=== PATIENT | male | born 1960 | race Caucasian/White ===

== ENCOUNTER → 2023-05-06 15:13 | Outpatient (CLI) | payer BC, SELFPAY ==
--- NOTE | ~2023-05-06 | CT_ITS ---
EXAMINATION: CT lung screening DATE: 05/06/2023 15:28 INDICATION: Z87.891 - Personal history of nicotine dependence TECHNIQUE: Computed tomography (CT) of the chest was performed without intravenous contrast. Addition al 3D reconstructions utilizing coronal maximum intensity projection (MIP) were performed. Automated exposure control and iterative reconstruction technique were employed. The dose-length product was 70 .15 mGy-cm. COMPARISON: None FINDINGS: Severe emphysema. Biapical pleural-parenchymal scarring, left greater than right. Linear bands of dis coid atelectasis/scarring and calcified pulmonary nodules in the bilateral upper lobes consistent wit h chronic granulomatous disease. 4 mm noncalcified nodule at the left apex and 2 mm subpleural nodule in the anterobasilar segment of the right lower lobe. A few small thin triangular intrafissural lymp h nodes along the bilateral major fissures. No pneumonia, pulmonary edema, pleural effusion or pneumo thorax. Heart size normal. Atherosclerotic coronary artery calcification is. Thoracic aorta is normal in caliber. No pathologically enlarged thoracic lymphadenopathy. Visualized upper abdomen is unremar kable. Mild upper thoracic dextrocurvature with chronic mild anterior wedging of a few mid thoracic v ertebral bodies. Moderate thoracic spondylosis. IMPRESSION: 1. Lung-RADS category 2: Benign appearance or behavior. Continue annual screening with noncontrast lo w-dose chest CT in 12 months. Reviewed, dictated and finalized at location A. T PARKING ATTENDANT IMPRESSION: 1. Lung-RADS category 2: Benign appearance or behavior. Continue annual screeni ng with noncontrast low-dose chest CT in 12 months.
== END ==
PROVIDERS: PCP Physician Assistant; Visit Provider Physician Assistant
DX: Z12.2 Encounter for screening for malignant neoplasm of respiratory organs (principal); Z87.891 Personal history of nicotine dependence
CPT/HCPCS: 71271

== ENCOUNTER 2023-06-07 01:57 | Day surgery (SDC) | payer BC, SELFPAY ==
[2023-06-01 15:12] VITALS: BMI 24.0
--- NOTE | 2023-06-03 09:20 | SUR.PREOP ---
Patient called regarding upcoming procedure. Voicemail left regarding appointment times.
[2023-06-07 13:05] VITALS: BP 142/94; PULSE 62; RESP 16; TEMP 36.5; O2SAT 98
[2023-06-07] MEDS: LACTATED RINGERS 1,000 ML 150 ML IV CONT (13:13)
--- NOTE | 2023-06-07 13:21 | PM.HPGS ---
History of Present Illness History of Present Illness Consent: Risks, benefits, and alternatives have been discussed and questions answered. Patient agrees to proceed with procedure. Chief complaint: neoplasm screening Narrative: Keron Torres is a 62 year old male here for first screening colonoscopy Review of Systems Review of Systems: All systems reviewed & are unremarkable except as noted in HPI and below PMFSH Past Medical History Medical History Colon cancer screening COPD (chronic obstructive pulmonary disease) Dyslipidemia Elevated PSA Thrombocytosis Tobacco use Family History Family History Mother Hypertension Father Family history of coronary artery disease Other Family history of arthritis Social History Social History Smoking packs per day: 1 Smoking cigarettes per day: 20.0 Years smoked: 30 Smoking pack-years: 30.00 Smoking status: Former smoker Tobacco type: cigarettes and e-cigarettes/vaping Additional smoking assessment comments: CURRENTLY VAPES SINCE 04/11/2023 Alcohol intake: current Substance use: current Substance use type: marijuana Other substance usage details: DAILY-SMOKES- RECREATION Living arrangements: with family Spiritual care concerns: No Meds Home Medications and Allergies Home Medications Medication Instructions Recorded Confirmed Type Chelation Plus Reservatrol 3 tab-cap PO DAILY 06/01/23 06/07/23 History [place] Xl 2 tab-cap PO DAILY 06/01/23 06/07/23 History Allergies Allergy/AdvReac Type Severity Reaction Status Date / Time No Known Allergies Allergy Verified 06/07/23 13:02 Vital Signs Vital Signs - 24 hr 06/07/23 13:05 Temperature 97.7 F Pulse Rate 62 Respiratory Rate 16 Blood Pressure 142/94 H Pulse Oximetry 98 Oxygen Delivery Room Air Exam Const: General: comfortable and no acute distress HENMT: Face/Nose/Sinus: Normal nares present Eyes: General: appearance normal, both eyes and all related structures Neck: Neck: no JVD Resp: Auscultation: clear to auscultation bilaterally Cardio: Rate: regular rate Rhythm: regular rhythm GI: Inspection: non-distended GI Palp: Yes Soft to palpation Skin: General skin exam: normal color Neuro: General: gait normal Speech: normal speech Extrem: General: normal to inspection Psych: Mental Status: mental status grossly normal Assessment and Plan Assessment and plan (1) Colon cancer screening: Code(s): Z12.11 - Encounter for screening for malignant neoplasm of colon Status: Acute Assessment and Plan: colonoscopy
--- NOTE | 2023-06-07 13:24 | WPDANESEPPF ---
Anes - Initial Pre Proc Eval Procedure: Operation Date: 06/07/23 13:30 Proposed Procedures p Screening Colonoscopy - Sunny Stone MD Date/Time: 06/07/23 13:24 Surgeon: Sunny Sotne MD Pre Op Diagnosis: neoplasm screening Patient Data Age: 62 Gender: M Height: 1.63 m Weight: 61.3 kg Last Vital Signs Temp 97.7 F 06/07/23 13:05 Pulse 62 06/07/23 13:05 Resp 16 06/07/23 13:05 BP 142/94 H 06/07/23 13:05 Pulse Ox 98 06/07/23 13:05 O2 Del Method Room Air 06/07/23 13:05 Allergies Allergy/AdvReac Type Severity Reaction Status Date / Time No Known Allergies Allergy Verified 06/07/23 13:02 Home Medications Medication Instructions Recorded Confirmed Type Chelation Plus Reservatrol 3 tab-cap PO DAILY 06/01/23 06/07/23 History [place] Xl 2 tab-cap PO DAILY 06/01/23 06/07/23 History Patient hx anesthesia problems: none Family hx anesthesia problems: none Results Review: All pre-operative results and documents have been reviewed as part of the pre-operative evaluation. [facility] Past Medical History Medical History Colon cancer screening COPD (chronic obstructive pulmonary disease) Dyslipidemia Elevated PSA Thrombocytosis Tobacco use Family History Family History Mother Hypertension Father Family history of coronary artery disease Other Family history of arthritis Social History Social History Smoking packs per day: 1 Smoking cigarettes per day: 20.0 Years smoked: 30 Smoking pack-years: 30.00 Smoking status: Former smoker Tobacco type: cigarettes and e-cigarettes/vaping Additional smoking assessment comments: CURRENTLY VAPES SINCE 04/11/2023 Alcohol intake: current Substance use: current Substance use type: marijuana Other substance usage details: DAILY-SMOKES- RECREATION Living arrangements: with family Spiritual care concerns: No Anes - Eval Final PreProcedure Day of Procedure 06/07/23 13:24 Patient weight: normal Heart: regular rate and rhythm Lungs: clear to auscultation Airway: Mallampati scale class II Neurological: alert and oriented Last oral intake: >/= 8 hours ASA classification: III Emergent: no Anesthetic plan: proceed Anesthesia type and monitoring: general GIVS and standard monitoring Results Review: All pre-operative results and documents have been reviewed as part of the pre-operative evaluation. Informed Consent: The patient's anesthetic plan and its attendant risks and benefits were discussed with the patient/family/POA. Questions were solicited and answers provided to the satisfaction of the patient/family/POA.
[2023-06-07 13:36] VITALS: BP 116/72; PULSE 64; RESP 21; O2SAT 99
[2023-06-07 13:46] VITALS: BP 126/68; PULSE 65; RESP 25; O2SAT 100
[2023-06-07 13:56] VITALS: BP 134/82; PULSE 55; RESP 18; O2SAT 100
== END 2023-06-07 14:16 | disposition home or self-care (01) ==
PROVIDERS: PCP Physician Assistant; Visit Provider Internal Medicine Gastroenterology
PROC: 0DJD8ZZ Inspection of Lower Intestinal Tract, Via Natural or Artificial Opening Endoscopic (ICD-10-PCS; CPT 45378; principal; 2023-06-07 13:30)
DX: Z12.11 Encounter for screening for malignant neoplasm of colon (principal); K63.5 Polyp of colon; K64.8 Other hemorrhoids; E78.5 Hyperlipidemia, unspecified; J44.9 Chronic obstructive pulmonary disease, unspecified; D75.839 Thrombocytosis, unspecified; F12.90 Cannabis use, unspecified, uncomplicated; Z87.891 Personal history of nicotine dependence; Z82.49 Family history of ischemic heart disease and other diseases of the circulatory system
CPT/HCPCS: 45380; 88305; J2704; J7120

== ENCOUNTER 2024-05-15 11:06 | Outpatient (CLI) | payer OTHER, SELFPAY | END 2024-05-15 11:07 | disposition home or self-care (01) | LOC: MICIMG 11:10 | PROVIDERS: PCP Family Medicine; Visit Provider Physician Assistant | DX: Z12.2 Encounter for screening for malignant neoplasm of respiratory organs (principal); Z87.891 Personal history of nicotine dependence; Z13.6 Encounter for screening for cardiovascular disorders; J43.9 Emphysema, unspecified | CPT/HCPCS: 71271; 76775 ==

== ENCOUNTER 2025-01-24 12:36 | Outpatient (CLI) | payer OTHER, SELFPAY ==
--- NOTE | ~2025-01-24 | US_ITS ---
EXAM/PROCEDURE: US soft tissue head and neck HISTORY: R59.0 - Localized enlarged lymph nodes COMPARISON: None available. TECHNIQUE: Directed examination performed by technologist directed toward sonographic evaluation of the left supraclavicular region. FINDINGS: Numerous well-defined, hypoechoic masses some with posterior through enhancement, most having internal echoes are identified throughout the left supraclavicular region. The largest measures 1.7 x 0.8 x 1.2 cm. IMPRESSION: Numerous hypoechoic masses as above with reactive lymphadenopathy possibly having a similar appearance. Correlation with sectional imaging of this area such as contrast-enhanced soft tissue neck/chest CT or alternatively MRI recommended for optimal evaluation. Reviewed, dictated and finalized at location A. IO OPERATIONS ENGINEER IN CHARGE IMPRESSION: Numerous hypoechoic masses as above with reactive lymphadenopathy possibly havi ng a similar appearance. Correlation with sectional imaging of this area such a s contrast-enhanced soft tissue neck/chest CT or alternatively MRI recommended for optimal evaluation.
--- OUTSIDE RECORDS SUMMARY | 2025-01-24 13:10 | XMS_ITS | Clinical Summary ---
Author Organization [facility] Health Address [address] [place] [address] Care Team Providers Care Mine Safety Manager Name Role Phone Unavailable Primary Care Provider Unavailabl e Medications amoxicillin-pot clavulanate (AUGMENTIN) 875-125 mg tablet Take 1 tablet by mouth in the morning and 1 tablet in the evening. 14 tablet 08/22/2023 Active oxyCODONE-acetam inophen (Percocet) 5-325 mg tablet Take 1 tablet by mouth every 4 (four) hours if needed for severe pain. 16 tablet 08/22/2023 Active chlorhexidine (PERIDEX) 0.12 % solution Swish 15 mL for one minute twice daily. Spit out. 480 mL 08/22/2023 Active Social History Tobacco Use Types Packs/Day Years Used Date Smoking Tobacco: Never Assessed Sex and Gender Information Value Date Recorded Sex Assigned at Not on file Legal Sex Male 7:13 AM PDT Gender Identity Not on file Sexual Orientation Not on file Plan of Treatment Health Maintenance Due Date Last Done Comments Dental Oral Exam 1958 Dental Prophylaxis 1958 Dental X-Ray: Bitewings 1958 Dental X-Ray: Full Mouth 1958 Dental X-Ray: Panoramic 08/05/2026 08/05/2023 [facility] COMMERCIAL
--- OUTSIDE RECORDS SUMMARY | 2025-01-24 13:10 | XMS_ITS | Clinical Summary ---
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 Gender Identity Not on file Sexual Orientation Not on file Plan of Treatment Health Maintenance Due Date Last Done Comments Colon Cancer Screening-Colonoscopy 1958 Depression Screening 1958 Fall Risk Assessment 1958 Hepatitis C Screening 1958 Prostate Cancer Screening-PSA 1958 DTaP/Tdap/Td Vaccine (1 - Tdap) 1969 Hepatitis B Screening 1976 Pneumococcal vaccine 65+ (1 of 1 - PCV) 2008 Abdominal Aortic Aneurysm (A AA) Screen 10/09/2023 Well Visit 65+ 10/09/2023 Covid-19 Vaccine (2024-2 6 season) 2024 12/14/2022, 12/14/2020, 06/05/2020, Additional history exists Influenza Vaccine (#1) 2024 , 12/24/2021, 12/11/2020 Zoster Vaccine Completed 02/12/2023, 12/14/2022 Insurance ANTHEM ACCESS ANTHEM ACCESS Care Teams Wild Life Photographer Relationship Specialty Start Date End Date Jasbir Pepe MD [address] [facility] [address] [place] [address] PCP - General Family Medicine 06/16/23
--- OUTSIDE RECORDS SUMMARY | 2025-01-24 13:10 | XMS_ITS | Encounter Summary ---
Author Organization [employer] Address 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
--- OUTSIDE RECORDS SUMMARY | 2025-01-24 13:10 | XMS_ITS | Encounter Summary ---
Author Organization [email or web address] Address 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
--- OUTSIDE RECORDS SUMMARY | 2025-01-24 13:10 | XMS_ITS | Encounter Summary ---
Author Organization [employer] Address 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
--- OUTSIDE RECORDS SUMMARY | 2025-01-24 13:10 | XMS_ITS | Clinical Summary ---
Author Organization [facility] Address [address] [facility] [place] [address] Phone Care Team Providers Care Napper Grinder Name Role Phone Jasbir Pepe MD Primary Care Provider [phone] Allergies No known active allergies Medications buPROPion HCl (WELLBUTRIN XL) 150 mg Extended Release 24 hour tablet TAKE 1 TABLET BY MOUTH EVERY DAY 1 03/16/2018 Active Active Problems Problem Noted Date Diagnosed Date Leukocytosis (leucocytosis) 04/10/2018 Thrombocytosis 04/10/2018 Family History Medical History Relation Name Comments Brain Cancer Brother 1 Breast Cancer Mother Cancer Mother Relation Name Status Comments Brother 1 Alive Brother 2 Alive Father Mother Sister 1 Alive Sister 2 Alive Sister 3 Alive Social History Tobacco Use Types Packs/Day Years Used Date Smoking Tobacco: Former Cigarettes 1 30 0 03/20/1988 - 03/20/2018 Smokeless Tobacco: Never Alcohol Use Standard Drinks/Week Comments Yes 0 (1 standard drink = 0.6 oz pur e alcohol) Sex and Gender Information Value Date Recorded Sex Assigned at Not on file 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 Gender Identity Not on file Sexual Orientation Not on file Last Filed Vital Signs Vital Sign Reading Time Taken Comments Blood Pressure 145/86 07/31/2018 4:00 PM CDT Pulse 56 07/31/2018 4:00 PM CDT Temperature 36.8 C (98.2 F) 07/31/2018 4:00 PM CDT Respiratory Rate - - Oxygen Saturation 97% 07/31/2018 4:00 PM CDT Inhaled Oxygen Concentration - - Weight 68.4 kg (150 lb 14.4 oz) 07/31/2018 4:00 PM CDT Height 161.3 cm (5' 3.5) 07/31/2018 4:00 PM CDT Body Mass Index 26.31 07/31/2018 4:00 PM CDT Plan of Treatment Health Maintenance Due Date Last Done Comments DTAP/TDAP/TD VACCINES (1 - Tdap) 1977 COLORECTAL SCREENING 10/09/2003 Colorectal Cancer Screening 10/09/2003 FIT-DNA Q 3 years 10/09/2003 FIT/FOBT Q 1 year 10/09/2003 Flex Sig/CT Colonography Q 5 years 10/09/2003 PNEUMOCOCCAL VACCINE 50+ YEARS (1 of 1 - PCV) 10/09/19 09 ZOSTER VACCINE (1 of 2) 2008 INFLUENZA VACCINE (#1) 2024 RSV VACCINE (60+ or ) (1 - 1-dose 75+ series) 2033 Insurance [facility] [employer] PPO Care Teams Napper Grinder Relationship Specialty Start Date End Date Jasbir Pepe MD [address] [facility] [address] [place] [phone] PCP - General Family Practice 07/31/18
--- OUTSIDE RECORDS SUMMARY | 2025-01-24 13:10 | XMS_ITS | Encounter Summary ---
Author Organization [facility] Health Address [address] [place] [address] Care Team Providers Care Pleater Hand Name Role Phone Unavailable Primary Care Provider Unavailabl e Prior Encounters Date Type Department Care Team Description 09/20/2023 9:00 AM CDT Office Visit [facility] [address] [place] [phone] Manjit Mcneil DDS 08/22/2023 12:30 PM CDT Office Visit [facility] [address] [place] [phone] Manjit Mcenil DDS 08/05/2023 8:00 AM CDT Office Visit [facility] [address] [place] [phone] Manjit Mcneil DDS Plan of Treatment Not on file Procedures Procedure Name Priority Date/Time Associated Diagnosis Comments RE-EVALUATION POST-OPERATIVE OFFICE VISIT Routine 09/20/2023 9:00 AM CDT 31 EXTRACTION, ERUPTED TOOTH REQUIRING REMOVAL OF BONE AND/OR SECTIONING OF TOOTH Routine 08/22/2023 12:30 PM CDT UR PRIMARY CLOSURE OF A SINUS PERFORATION Routine 08/22/2023 12:30 PM CDT 4 UR OSSEOUS SURGERY FOUR OR MORE CONTIGUOUS TEETH Routine 08/22/2023 12:30 PM CDT 31 PLACEMENT OF INTRA-SOCKET BIOLOGICAL DRESSING TO AID IN HEMOSTASIS OR CLOT STABILIZATION, PER SITE Routine 08/22/2023 12:30 PM CDT 4 PLACEMENT OF INTRA-SOCKET BIOLOGICAL DRESSING TO AID IN HEMOSTASIS OR CLOT STABILIZATION, PER SITE Routine 08/22/2023 12:30 PM CDT 27 LR OSSEOUS SURGERY FOUR OR MORE CONTIGUOUS TEETH Routine 08/22/2023 12:30 PM CDT 4 EXTRACTION, ERUPTED TOOTH REQUIRING REMOVAL OF BONE AND/OR SECTIONING OF TOOTH Routine 08/22/2023 12:30 PM CDT 14 UL OSSEOUS SURGERY FOUR OR MORE CONTIGUOUS TEETH Routine 08/22/2023 12:30 PM CDT 21 LL OSSEOUS SURGERY FOUR OR MORE CONTIGUOUS TEETH Routine 08/22/2023 12:30 PM CDT OCCLUSAL GUARD HARD APPLIANCE, FULL ARCH Routine 08/05/2023 8:00 AM CDT PERIO CONSULT Routine 08/05/2023 8:00 AM CDT Visit Diagnoses Not on file Insurance [facility]
--- OUTSIDE RECORDS SUMMARY | 2025-01-24 13:10 | XMS_ITS | Encounter Summary ---
Author Organization [employer] Address 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
== END 2025-01-24 12:37 | disposition home or self-care (01) ==
PROVIDERS: PCP Family Medicine
DX: R59.0 Localized enlarged lymph nodes (principal)
CPT/HCPCS: 76536

== ENCOUNTER 2025-02-12 12:29 | Outpatient (CLI) | payer OTHER, SELFPAY ==
--- NOTE | ~2025-02-12 | CT_ITS ---
EXAMINATION: CT chest abdomen pelvis w con DATE: 02/12/2025 13:34 INDICATION: Secondary and unspecified malignant neoplasm of lung TECHNIQUE: Computed tomography (CT) of the chest, abdomen, and pelvis was performed with 100 mL Omnipaque-350 intravenous contrast. Automated exposure control and iterative reconstruction technique were employed. The dose-length product was 320.82 mGy-cm. COMPARISON: 05/15/2024 FINDINGS: CHEST CT: Severe emphysema. No significant change in linear bands of discoid atelectasis/scarring in the bilateral upper and lower lobes. Several calcified nodule right upper lobe along with calcified right hilar and mediastinal lymph nodes consistent with old granulomatous disease. Consistent with old granuloma tous disease. No pneumonia, pulmonary edema or pleural effusion. Heart size is normal. Atherosclerotic coronary artery calcifications. Thoracic aorta is normal in caliber with no dissection. There are multiple enlarged and heterogeneously enhancing mediastinal and right hilar lymph nodes. For reference this includes a 2.4 x 1.6 cm AP window lymph node, a 3.3 x 2.2 cm precarinal lymph node and a 2.3 x 2.3 cm right hilar lymph node. There is a new moderate-sized pericardial effusion. There is a 3.2 x 3.1 cm lytic lesion at the manubrium concerning for malignancy. There appears to be mild expansion and cortical thickening of the posterior aspect of the left 10th rib consistent with Paget's disease. ABDOMEN/PELVIS CT: Liver, gallbladder, pancreas and bilateral adrenal glands are normal. There are few small hypodense splenic lesions the largest measuring 9 mm. Bilateral renal cysts the largest on the left measuring 1.9 cm. Bowels including the appendix are normal. Prostatomegaly measuring 5.4 x 4.7 cm. Bladder is normal. No free intraperitoneal gas or fluid. No pathologically enlarged abdominal or pelvic lymphadenopathy. Several scattered small sclerotic likely bone islands in the pelvis and bilateral femoral heads. Mild to moderate bilateral hip and sacroiliac osteoarthritis. No other suspicious lytic or blastic bone lesions. IMPRESSION: 1. Enlarged mediastinal and right hilar lymph nodes and a 3.3 cm lytic lesion at the manubrium concerning for metastatic disease. Given the previous noted concerning left supraclavicular lymphadenopathy identified on prior ultrasound would consider further evaluation with core needle biopsy of the left supraclavicular lymph nodes. 2. Moderate-sized pericardial effusion, new since the prior study. 3. There are few subcentimeter hypodense splenic lesions. While most typically benign such as cysts or hemangiomas, differential also includes granulomatous disease or metastatic disease. 4. Prostatomegaly. 5. Severe emphysema with stable chronic discoid atelectasis/scarring in the bilateral upper and lower lobes. Reviewed, dictated and finalized at location A. NESS OFFICE TECHNOLOGY INSTRUCTOR IMPRESSION: 1. Enlarged mediastinal and right hilar lymph nodes and a 3.3 cm lytic lesion a t the manubrium concerning for metastatic disease. Given the previous noted con cerning left supraclavicular lymphadenopathy identified on prior ultrasound wou ld consider further evaluation with core needle biopsy of the left supraclavicu lar lymph nodes. 2. Moderate-sized pericardial effusion, new since the prior study. 3. There are few subcentimeter hypodense splenic lesions. While most typically benign such as cysts or hemangiomas, differential also includes granulomatous d isease or metastatic disease. 4. Prostatomegaly. 5. Severe emphysema with stable chronic discoid atelectasis/scarring in the dung ateral upper and lower lobes.
--- OUTSIDE RECORDS SUMMARY | 2025-02-12 13:07 | XMS_ITS | Encounter Summary ---
Author Organization [facility] Address 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
--- OUTSIDE RECORDS SUMMARY | 2025-02-12 13:07 | XMS_ITS | Encounter Summary ---
Author Organization [facility] Address [address] [place] [address] Care Team Providers Care Instructor Hairspring Name Role Phone Jasbir Pepe MD Primary Care Provider [phone] Encounter Details Date Type Department Care Team (Latest Contact Info) Description 03/31/2005 Outpatient Historical [facility] Xavi Stone MD [address] 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
--- OUTSIDE RECORDS SUMMARY | 2025-02-12 13:07 | XMS_ITS | Encounter Summary ---
Author Organization [facility] Address [address] [place] [address] Care Team Providers Care Dumping Machine Operator Name Role Phone Unavailable Primary Care Provider Unavailabl e Prior Encounters Date Type Department Care Team Description 09/20/2023 9:00 AM CDT Office Visit [facility] [address] [place] [phone] Manjit Mcneil DDS 08/22/2023 12:30 PM CDT Office Visit [facility] [address] [place] [phone] Manjit Mcneil DDS 08/05/2023 8:00 AM CDT Office Visit [facility] [address] [place] [phone] Manjit Mcneil DDS Plan of Treatment Not [...] CDT Visit Diagnoses Not on file [facility]
--- OUTSIDE RECORDS SUMMARY | 2025-02-12 13:07 | XMS_ITS | Clinical Summary ---
Author Organization [facility] Address [address] [place] [address] Phone Care Team Providers Care Inbound Telemarketer Name Role Phone Jasbir Pepe MD Primary Care Provider [phone] Allergies No known active allergies Medications buPROPion [...] on file Legal Sex Male 4:16 AM CHILDREN'S TUTOR Gender Identity Not on file Sexual Orientation [...] (1 - 1-dose 75+ series) 2033 Insurance [facility] [employer] PPO Care Teams Inbound Telemarketer Relationship Specialty Start Date End Date Jabsir Pepe MD [address] [facility] [address] [place] [address] PCP - General Family Practice 07/31/18
--- OUTSIDE RECORDS SUMMARY | 2025-02-12 13:07 | XMS_ITS | Clinical Summary ---
Author Organization [facility] Health Address [address] [place] [address] Care Team Providers Care Studio Manager Name Role Phone Unavailable Primary Care [...] 1960 Dental X-Ray: Panoramic 08/05/2026 08/05/2023 [facility] COMMERCIAL
--- OUTSIDE RECORDS SUMMARY | 2025-02-12 13:07 | XMS_ITS | Encounter Summary ---
Author Organization [facility] Address [address] [place] [address] Care Team Providers Care Auction Block Clerk Name Role Phone Jasbir Pepe MD Primary Care Provider [phone] Encounter Details Date Type Department Care Team (Late st Contact Info) Description 03/31/2005 Outpatient Historical [facility] Support Services [facility] [place] [address] [place] [address] Xavi Stone MD [address] [place] [address] Social History Tobacco Use Types Packs/Day Years Used Date Smoking Tobacco: Never Assessed Sex and Gender Information Value Date Recorded Sex Assigned at Not on file 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
--- OUTSIDE RECORDS SUMMARY | 2025-02-12 13:07 | XMS_ITS | Encounter Summary ---
Author Organization [facility] Address 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
--- OUTSIDE RECORDS SUMMARY | 2025-02-12 13:07 | XMS_ITS | Clinical Summary ---
Author Organization [facility] Address [address] [place] [address] Care Team Providers Care Finish Sander Name Role Phone Jasbir Pepe MD Primary Care Provider Encounters Date Type Department Care Team Description 02/04/2025 7:38 AM VETERAN APPEALS REVIEWER - 02/04/2025 11:59 PM VETERAN APPEALS REVIEWER Hospital Encounter [facility] [place] [address] [place] [address] Lymphadenopathy, supraclavicular; Localized swelling, mass and lump, trunk Discharge Disposition: Discharge to home or self care 01/30/2025 2:25 PM VETERAN APPEALS REVIEWER Lab [facility] Lab [address] [place] [address] Lymphadenopathy, supraclavicular; Localized swelling, mass and lump, trunk 01/24/2025 12:50 PM VETERAN APPEALS REVIEWER - 01/24/2025 11:59 PM VETERAN APPEALS REVIEWER Hospital Encounter [facility] [employer] [address] [place] [address] [place] [address] Discharge Disposition: Discharge to home or self care from Last 3 Months Surgical History Surgery Date Site/Laterality Comments US GUIDED BIOPSY LYMPH NODE SUPERFICIAL LEFT N/A Social History Tobacco Use Types Packs/Day Years Used Date Smoking Tobacco: Never Assessed Sex and Gender Information Value Date Recorded Sex Assigned at Not on file Legal Sex Male 1:13 AM VETERAN APPEALS REVIEWER Gender Identity Not on file Sexual Orientation Not on file Plan of Treatment Health Maintenance Due Date Last Done Comments Colon Cancer Screening-Colonoscopy 1960 Depression Screening 1960 Fall Risk Assessment 1960 Hepatitis C Screening 1960 Prostate Cancer Screening-PSA 1960 DTaP/Tdap/Td Vaccine (1 - Tdap) 1969 Hepatitis B Screening 1976 Pneumococcal vaccine 65+ (2 of 2 - PCV) 05/17/2012 05/18/2011 Abdominal Aortic Aneurysm (A AA) Screen 10/09/2023 Well Visit 65+ 10/09/2023 Covid-19 Vaccine (5 - 2024-2 6 season) 2024 12/14/2022, 12/14/2020, 06/05/2020, Additional history exists Influenza Vaccine (#1) 2024 , 12/24/2021, 12/11/2020, Additional history exists Zoster Vaccine Completed 02/12/2023, 12/14/2022 Procedures Procedure Name Priority Date/Time Associated Diagnosis Comments US GUIDED BIOPSY LYMPH NODE SUPERFICIAL LEFT Schedule Routine, Read Routine (OP Routine) 02/04/2025 8:54 AM VETERAN APPEALS REVIEWER Lymphadenopathy, supraclavicular Localized swelling, mass and lump, trunk FLOW LEUKEMIA/LYMPHOMA Routine 02/04/2025 8:18 AM VETERAN APPEALS REVIEWER SURGICAL PATHOLOGY Routine 02/04/2025 8: 18 AM VETERAN APPEALS REVIEWER Lymphadenopathy, supraclavicular Localized swelling, mass and lump, trunk APTT STAT 01/30/2025 2:33 PM VETERAN APPEALS REVIEWER Lymphadenopathy, supraclavicular Localized swelling, mass and lump, trunk CBC WITHOUT DIFFERENTIAL STAT 01/30/2025 2:33 PM VETERAN APPEALS REVIEWER Lymphadenopathy, supraclavicular Localized swelling, mass and lump, trunk PROTIME-INR STAT 01/30/2025 2:33 PM VETERAN APPEALS REVIEWER Lymphadenopathy, supraclavicular Localized swelling, mass and lump, trunk US TRANSFER OF OUTSIDE FILMS Routine 01/24/2025 12:50 PM VETERAN APPEALS REVIEWER from Last 3 Months Results * US Guided Biopsy Lymph Node Superficial Left (02/04/2025 8:54 AM VETERAN APPEALS REVIEWER) Anatomical Region Laterality Modality Entire body N/A Ultrasound, Comp uted Radiography 02/04/2025 9:36 AM VETERAN APPEALS REVIEWER Impressions 02/04/2025 9:36 AM VETERAN APPEALS REVIEWER Successful sonographic guided left supraclavicular lesion biopsy. Electronically signed by: Justin Rhodes M.D. Narrative 02/04/2025 9:36 AM VETERAN APPEALS REVIEWER Technique: Sonographic guided lesion biopsy. Indication: Lesion. Procedure: The alternatives to, the benefits of and the risks of the procedure were discussed with the patient and informed written consent was obtained. The patient was placed in a supine position and the skin was prepped and draped in the usual sterile fashion. Local anesthesia was achieved with 2 ml of 1% lidocaine. Under sonographic guidance, an 18-gauge coaxial biopsy device was inserted into the lesion and 4 core biopsy specimens were obtained. The patient tolerated the procedure well. There were no immediate complications. Procedure Note Justin Rhodes MD - 02/04/2025 Technique: Sonographic guided lesion biopsy. Indication: Lesion. Procedure: The alternatives to, the benefits of and the risks of the procedure were discussed with the patient and informed written consent was obtained. The patient was placed in a supine position and the skin was prepped and draped in the usual sterile fashion. Local anesthesia was achieved with 2 ml of 1% lidocaine. Under sonographic guidance, an 18-gauge coaxial biopsy device was inserted into the lesion and 4 core biopsy specimens were obtained. The patient tolerated the procedure well. There were no immediate complications. IMPRESSION: Successful sonographic guided left supraclavicular lesion biopsy. Electronically signed by: Justin Rhodes M.D. us Jasbir Pepe MD [facility] US PROCEDURES Final Result * Flow Leukemia/Lymphoma Lymph node (02/04/2025 8:18 AM VETERAN APPEALS REVIEWER) Delaney Stain Test Completed Comment:Testing performed by : [facility], [address], [place]., [address] Leukemia/Lymp natalia Result See separate Surgical Pathology report. MONIQUE MATIAS Comment:Testing performed by : [facility], [address] [place]., [address] Lymph node 02/04/2025 8:18 AM VETERAN APPEALS REVIEWER 02/04/2025 12:09 PM VETERAN APPEALS REVIEWER us Vandana DURHAM LAB PATHOLOGY ORDERABLE S Final Result MONIQUE MATIAS [address] [facility] Department [place] [address] * Surgical pathology (02/04/2025 8:18 AM VETERAN APPEALS REVIEWER) Tissue (Lymph node, needle biopsy) 02/04/2025 8:18 AM VETERAN APPEALS REVIEWER Narrative PATHOLOGY [facility] - 02/06/2025 11:38 AM VETERAN APPEALS REVIEWER EPIC results best viewed via link to PDF [facility] [place] [address] [place] [address] Note to Patients: This report may contain a detailed description of human tissue sent by a health care provider to the laboratory for pathologic evaluation. The content of this report is essential for diagnosis and may provide important critical findings. This information may be unfamiliar to patients to review without a medical professional present. It is advised that the patient review this report in the presence of a health care provider who can answer questions and explain the details. SURGICAL PATHOLOGY REPORT FINAL WITH ADDENDUM Patient Name: KERON TORRES Gender: M : 1960 (Age: 64) Address: [place] [address] Hospital #: [id number] Taken:02/04/2025 Received:02/04/2025 Reported: 02/06/2025 Patient Type: B ANCILLAR Service: DEFAULT Location: Physician(s): MD Jasbir Muir M.D. Diagnosis: A. Left supraclavicular lymph node lymphoma workup if needed: - Metastatic poorly differentiated carcinoma (see comment) B. Lymph node, whole or part, for flow cytometry - Unable to evaluate due to insufficient viable cell counts [facility]/02/05/2025 11:35 By this signature, I attest that the above diagnosis is based upon my personal examination of the slides(and/or other material indicated in the diagnosis). Steve Whatley M.D. Report Electronically Reviewed and Signed Out By Steve Whatley M.D. 02/06/2025 11:38:11 Microscopic Description and Comment: Immunohistochemical studies show tumor cells are positive for p63 (patchy), while negative for keratin 5/6, TTF-1, GATA3, NKX3.1, PAX8 and S100 protein. The morphologic and immunohistochemical findings are not specific for a site of origin. Clinical and imaging correlation is recommended. Flow cytometry Specimen quality: Paucicellular Flow cytometry was not performed due to insufficient viable cell counts. A Delaney-Giemsa stained cytospin from the flow cytometry specimen was examined for internal manufacturing quality inspector purposes. ([facility] 02/05/25) Flow cytometry and cytospin reviewed by Dr. Miranda.f Diagnosis discussed with Dr. Pepe's office on 02/06/25. Vandana Morel M.D., P.h.D. 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 Operative procedure: Left supraclavicular lymph node biopsy. Specimen(s) Received: A: Left supraclavicular lymph node lymphoma workup if needed B: Lymph node, whole or part, for flow cytometry Gross Description: Received in formalin, labeled with the patient s identifiers and left supraclavicular lymph node; lymphoma workup if needed and consists of four menjivar core(s) of soft tissue measuring 0.4 to 1.8 cm in length x 0.1 cm in diameter. Labeled A1 to A2. Jar 0. [facility]/02/04/2025 15:06 PA(s): Dacia Snyder FLOW CYTOMETRY: LEUKEMIA PANEL Specimen information: TISSUE Cell count: 0.02x10^6 Too few cells to perform flow cytometric analysis By this signature, I attest that the above diagnosis is based upon my personal examination of the slides(and/or other material). Addenda/Procedures Addendum Ordered:02/06/2025Status:Signed OutAddendum Complete:02/06/2025y:Steve Whatley M.D.Addendum Signed Out:02/06/2025 Addendum Comment An immunohistochemical study for CDX2 is negative in tumor cells. The diagnosis is unchanged. By this signature, I attest that the above diagnosis is based upon my personal examination of the slides(and/or other material indicated in the diagnosis). Steve Whatley M.D.Report Electronically Reviewed and Signed Out By Steve Whatley M.D. 02/06/2025 12:58:14 Microscopic slide review and interpretation for this case was performed at [facility], Department of Surgical Pathology, [address] [facility], [place] [id number] [place] [address] CLIA # [id number] The performance characteristics of some immunohistochemical stains, fluorescence in-situ hybridization tests and immunophenotyping by flow cytometry cited in this report (if any) were determined by the Surgical Pathology and Flow Cytometry Departments at [facility] as part of an ongoing quality auditor program and in compliance with federally mandated regulations drawn from the Clinical Laboratory Improvement Act of 1988 (CLIA '88). Some of these tests rely on the use of analyte specific reagents and are subject to specific labeling requirements by the US Food and Drug Administration. Such diagnostic tests may only be performed in a facility that is certified by the Department of Health and Human Services as a high complexity laboratory under CLIA '88. The FDA has determined that such clearance or approval is not necessary. This test is used for clinical purposes. It should not be regarded as investigational or for research. Nevertheless, federal rules concerning the medical use of analyte specific reagents require that the following disclaimer be attached to the report: This test was developed and its performance characteristics determined by the Surgical Pathology and Flow Cytometry Departments of [facility]. It has not been cleared or approved by the U. S. Food and Drug Administration. IMAGES AND SCANNED DOCUMENTS, IF INCLUDED, ONLY VIEWABLE IN PDF VERSION OF REPORT Result [facility] Jasbir Pepe MD LAB PATHOLOGY ORDERABLE S Final Result Performing Organization Address [facility] Co de Phone Number PATHOLOGY [facility] * aPTT (01/30/2025 2:33 PM VETERAN APPEALS REVIEWER) aPTT 32 22 - 37 sec Comment: Interpretive data aPTT test has not been evaluated for monitoring heparin therapy. The anti-Xa is the preferred test. Current interpretive data was last revised on 2019. Blood 01/30/2025 2:33 PM VETERAN APPEALS REVIEWER 01/30/2025 2:49 PM VETERAN APPEALS REVIEWER Result [facility] Jasbir Pepe MD LAB BLOOD ORDERABLES Fi nal Result Performing Organization Address [facility] de Phone Number [address] [place] [address] * Protime-INR (01/30/2025 2:33 PM VETERAN APPEALS REVIEWER) Pathologist [facility] PT 13.40 12.00 - 14.60 sec INR 1.01 0.90 - 1.20 [facility] Comment: Interpretive data Oral anticoagulant therapeutic ranges: Venous thromboembolism prophylaxis or treatment: 2.0-3.0 CARDIOLOGY Standard range: 2.0-3.0 High-intensity range: 2.5-3.5 Refer to indication-specific guidelines for appropriate target ranges for prosthetic heart valve replacement. Current interpretive data was last revised on 2019. Blood 01/30/2025 2:33 PM VETERAN APPEALS REVIEWER 01/30/2025 2:49 PM VETERAN APPEALS REVIEWER Result [facility] Jasbir Pepe MD LAB BLOOD ORDERABLES Fi nal Result Performing Organization Address [facility] Co de Phone Number [facility] [address] [facility] [address] * CBC without differential (01/30/2025 2:33 PM VETERAN APPEALS REVIEWER) WBC 9.33 3.80 - 9.90 K/cumm Hgb 13.6 13.0 - 17.5 g/dL [facility] Hct 41.6 38.9 - 50.3 % [facility] Plt 373 150 - 400 K/cumm [facility] MPV 9.8 9.1 - 12.3 fL [facility] RBC 4.62 4.30 - 5.80 M/cumm [facility] MCV 90.0 81.3 - 96.4 fL [facility] MCH 29.4 27.1 - 33.3 pg [facility] MCHC 32.7 32.3 - 35.7 g/dL [facility] RDW CV 13.6 11.1 - 14.9 % [facility] RDW SD 44.6 35.7 - 48.1 fL [facility] NRBC abs 0.00 0.00 - 0.01 K/cumm [facility] Blood 01/30/2025 2:33 PM VETERAN APPEALS REVIEWER 01/30/2025 2:49 PM VETERAN APPEALS REVIEWER Jasbir Pepe MD LAB BLOOD ORDERABLES Fi nal Result Performing Organization Address [facility]/ZIP Co de Phone Number MONIQUE [address] [facility] Department [place] [address] * US Outside Reference (01/24/2025 12:50 PM VETERAN APPEALS REVIEWER) Narrative [email or web address] - 01/30/2025 7:28 AM VETERAN APPEALS REVIEWER This order has been auto-finalized and does not contain a result. us Provider Transcribed Order IMG US PROCEDURES Fin al Result Performing Organization Address [facility]/ZIP Co de Phone Number [email or web address] from Last 3 Months Insurance [facility] CHOICE PLUS ANTH ACCESS Member Subscriber Plan / Payer (Ef fective 2023-Present) Name:Keron Torres Relation to Subscriber:Self Name:Keron Torres Payer ID:[id number] (NAIC) Type:[facility] Address: [address] CHOICE PLUS Care Teams Finish Sander Relationship Specialty Start Date End Date Jasbir Pepe MD [address] [facility] [address] [place] [address] PCP - General Family Medicine 06/16/23
[2025-02-12 13:29] LABS: Estimated Glomerular Filt Rate > 60
== END 2025-02-12 12:30 | disposition home or self-care (01) ==
PROVIDERS: PCP Family Medicine
DX: C34.90 Malignant neoplasm of unspecified part of unspecified bronchus or lung (principal); C77.9 Secondary and unspecified malignant neoplasm of lymph node, unspecified; I31.39 Other pericardial effusion (noninflammatory); J43.9 Emphysema, unspecified; N40.0 Benign prostatic hyperplasia without lower urinary tract symptoms
CPT/HCPCS: 71260; 74177; Q9967